=== PATIENT | male | born 2000 | race Caucasian/White ===

== ENCOUNTER 2024-12-30 10:26 | Emergency (ER) | payer MEDICAID, SELFPAY ==
[2024-12-30 10:48] VITALS: BP 129/84; PULSE 100; RESP 19; TEMP 37; O2SAT 96; BMI 32.3
[2024-12-30] MEDS: LIDOCAINE HCL 1% 20 ML VIAL 10 ML INFL (11:24)
[2024-12-30] MEDS: DIPHTH,PERTUSS(ACELL),TET VAC 0.5 ML SYR IMi (11:25)
--- NOTE | 2024-12-30 11:35 | XR_ITS ---
Examination: Fingers, left hand first digit 3 views Technique: AP, oblique, lateral views left hand first digit 3 views. Exam date and time: December 30, 2024 1136 hrs. Indications: Laceration to the hand today with first digit pain Findings: No acute fracture No foreign body No cortical bone destruction Impression: No opaque foreign body
[2024-12-30] MEDS: HYDROcodone/APAP 5/325 TABLET 1 TAB PO (12:23)
--- NOTE | 2024-12-30 14:12 | EDNOTE_ITS ---
ED Wound/Laceration-RME/HPI General Chief Complaint: Hand/Wrist Problems Stated Complaint: CHAINSAW LACERATION TO THE LEFT THUMB Time Seen by Provider: 12/30/24 10:47 Arrival date/time: 12/30/24 10:26 This is a 24-year-old male who presented to the emergency department with a laceration injury to his left thumb. Patient reports he was using a chainsaw at home when it excellently slipped lacerating through his gloved left thumb. Denies any other injury. Patient did not attempt any interventions or take any OTC medications prior to ED visit. Mode of arrival: ambulatory Related Data Previous Rx's ?Medication ?Instructions ?Recorded acetaminophen 325 mg tablet 650 mg (2 x 325 mg) PO Q6H PRN 12/30/24 (Tylenol) fever or pain #30 tabs Allergies Allergy/AdvReac Type Severity Reaction Status Date / Time ibuprofen Allergy Verified 12/30/24 10:28 Review of Systems Review of Systems Systems Reviewed: All systems reviewed, normal except as documented Narrative Review of Systems: Gen: No fever, no chills, no weight loss EYES: No discharge, no visual changes, no pain HEENT: No ear pain, no congestion, no sore throat PULM: No shortness of breath, no cough, no congestion CV: No chest pain, no dyspnea on exertion, no palpitations GI: No nausea, no vomiting, no diarrhea, no pain, no constipation : No frequency, no urgency,? no dysuria Musc/skel: No joint pain, no back pain Skin: No rash?, + laceration left thumb Psyc: No hallucinations, no depression Heme/Lymph: No easy bleeding or bruising tendencies Neuro: No weakness, no headache ED Exam Narrative Physical exam: General: Sittiing in Exam table in no acute distress, answering questions appropriately HENT: normocephalic, atraumatic, EOMI, PERRLA, moist mucous membranes Chest: chest wall is nontender Cardiac: regular rate and rhythm, normal S1 and S2, no murmurs, rubs, or gallops, capillary refill ?2 seconds Pulmonary: clear to auscultation bilaterally, no wheezing, crackles, or rhonchi Abdominal: active bowel sounds, soft, nontender, nondistended Neuro: A&OX3, CN II-XII intact, sensation grossly intact bilaterally in UE and LE. Skin: + Anterior aspect (dorsum) left first digit 2 cm lac Ext: no lower extremity edema Course Quality Measures none Orders Category Date Time Status Set Up Suture Tray STAT Care 12/30/24 11:21 Completed Wound Care NOW Care 12/30/24 11:20 Completed XR finger LT min 2V Stat Exams 12/30/24 11:35 Completed HYDROcodone*/APAP 5/325 [[place] 5/325] Med 12/30/24 12:19 Discontinued 1 tab PO X1 ONE Lidocaine 1% 20 ml [Xylocaine 1% 20 ML] Med 12/30/24 11:20 Discontinued 10 ml INFL X1 ONE Tet,Diphth,Pertuss(Acell)-Tdap [Boostrix Vacc] Med 12/30/24 11:20 Discontinued 0.5 ml IMI .ONCE ONE Vital Signs Vital signs: Vital Signs Temperature 98.6 F 12/30/24 10:48 Pulse Rate 100 12/30/24 10:48 Respiratory Rate 19 12/30/24 10:48 Blood Pressure 129/84 12/30/24 10:48 Pulse Oximetry (%) 96 12/30/24 10:48 Oxygen Delivery Method Room Air 12/30/24 10:48 Procedures -ED Laceration Laceration 1: Site: other Side (If applicable): left Size (cm): 2 Description: flap, irregular and contaminated Depth: simple, single layer Local Anesthetic: lidocaine 1% Amount of anesthesia used (mL): 10 Pre-repair: wound explored, irrigated extensively and deep structures intact Skin layer closed with: vicryl Size (cm): 4-0 Number of sutures: 6 Technique: simple, interrupted Wound / Laceration MDM Narrative MDM Narrative:: Laceration repaired. See procedure note. CMS intact full range of motion. No tendon involvement Patient data External records reviewed:: [facility] previous records Clinical information provided by:: patient Social determinants that could affect healthcare access:: none Patient has the following chronic illnesses:: none How is presenting disease/condition affected by chronic disease/condition?: no chronic disease Evaluation data The following diagnostics were reviewed and interpreted by me:: radiology exam(s) Lab and/or radiology exams considered but not ordered:: none Interpretation Summary: Examination: Fingers, left hand first digit 3 views Technique: AP, oblique, lateral views left hand first digit 3 views. Exam date and time: December 30, 2024 1136 hrs. Indications: Laceration to the hand today with first digit pain Findings: No acute fracture No foreign body No cortical bone destruction Impression: No opaque foreign body Medications / Prescriptions Medications or Prescriptions considered but not ordered:: none Medication administrations:: Medication Administration History Discontinued Medications Hydrocodone Bitart/Acetaminophen (Hydrocodone/Apap 5/325 Tablet) 1 tab PO X1 ONE Stop: 12/30/24 12:20 Last Admin: 12/30/24 12:23 Dose: 1 tab Documented By: MUSHTAQ Diphtheria/Tetanus/Acell Pertussis (Diphth,Pertuss(Acell),Tet Vac 0.5 Ml Syr) 0.5 ml IMi .ONCE ONE Stop: 12/30/24 11:21 Last Admin: 12/30/24 11:25 Dose: 0.5 ml Documented By: MUSHTAQ Lidocaine HCl (Lidocaine Hcl 1% 20 Ml Vial) 10 ml INFL X1 ONE Stop: 12/30/24 11:21 Last Admin: 12/30/24 11:24 Dose: 10 ml Documented By: MUSHTAQ All medications administered and effective Consultations Consultation(s) initiated? (list below): No Diagnosis Wound Differential Diagnosis: laceration, abscess, abrasion and avulsion of skin Most likely diagnosis given after review of the tests above:: Laceration repair Admission Indicated Admission indicated?: not indicated Admission Request Was there a request for admission?: No Disposition Plan Disposition Plan: Discharge Discharge Attestation Discharge Attestation: The patient and all family members were given an opportunity to ask questions and understood the discharge instructions. Discharge instructions specifically effects, indications for sooner follow up or return to the emergency department, and the expected course of current diagnosis. Patient condition: Stable Discharge Plan Plan Patient Disposition: HOME (Self Care) Patient condition on transfer: Stable Prescriptions/Referrals Prescriptions/Med Rec: New acetaminophen [Tylenol] 325 mg tablet 650 mg PO Q6H PRN (Reason: fever or pain) Qty: 30 0RF Referrals: No Primary/Family,Physician [Primary Care Provider] - In 1 week Problem List Clinical Impression: Laceration Patient/Caregiver Discharge Instructions Discharge Activity: activity as tolerated Education Materials: ED Laceration Hand with ... Additional Instructions: Please keep area clean and dry. Take antibiotics as directed. Please follow up with Primary Doctor in 7-10 day for suture removal. Please return to ER if theres is any sign of infection. Please keep wound clean and dry. Print Language: Tajik Stand Alone Forms: Sandy Award Info., Patient Portal Info Letter PA/POINTING MACHINE OPERATOR Supervising Physician PA/POINTING MACHINE OPERATOR Supervising Physician: Dr Decker
== END 2024-12-30 14:29 | disposition home or self-care (01) ==
PROVIDERS: Emergency Provider Emergency Medicine
DX: S61.012A Laceration without foreign body of left thumb without damage to nail, initial encounter (principal); Z23 Encounter for immunization; W29.3XXA Contact with powered garden and outdoor hand tools and machinery, initial encounter; Y93.89 Activity, other specified; Y92.009 Unspecified place in unspecified non-institutional (private) residence as the place of occurrence of the external cause
CPT/HCPCS: 12001; 73140; 90471; 90715; 99283; J3490; A9270